=== PATIENT | male | born 1985 | race Caucasian/White ===

== ENCOUNTER 2025-04-10 21:14 | Emergency (ER) | payer BC ==
[~2025-04-10] VITALS: Ht 175.3 cm; Wt 83.9 kg
[2025-04-10] MEDS ORDERED: RX PP Dolutegravir Sodium 1 PREPACK/5 TAB TABLET PO ONE (21:40)
[2025-04-10] MEDS ORDERED: TIVICAY50 MG PO (21:45)
[2025-04-10] MEDS ORDERED: TENO300 PO (21:45)
[2025-04-10] MEDS ORDERED: Emtricitabine/Tenofovir (TDF) 200-300mg 1 TAB PO ONE ×2 (21:55→22:05)
== END 2025-04-10 22:00 | disposition home or self-care (01) ==
LOC: ER 21:14
PROVIDERS: Emergency Medicine
DX: Z77.21 Contact with and (suspected) exposure to potentially hazardous body fluids (principal)
CPT/HCPCS: 84460; A9270